=== PATIENT | male | born 1985 | race Hispanic/Latino ===

== ENCOUNTER 2017-09-20 12:48 | Emergency (ER) | payer SELFPAY ==
--- NOTE | 2017-09-20 13:21 | RAD ---
CHEST TWO VIEWS: 09/20/2017 HISTORY: Flu symptoms. Asthma. COMPARISON: None. FINDINGS: The lungs are clear. The heart and mediastinal contours are within normal limits. No acute osseous abnormality. IMPRESSION: No acute findings. POS: [facility]
[2017-09-20] MEDS ORDERED: Dexamethasone 4 mg/ml Vial ONE (14:19)
== END 2017-09-20 14:26 | disposition home or self-care (01) ==
LOC: ERS 12:48
DX: J45.901 Unspecified asthma with (acute) exacerbation (principal)
CPT/HCPCS: 71046; 94640; J1100; J7620